=== PATIENT | male | born 1965 | race Caucasian/White ===

== ENCOUNTER 2019-03-25 11:47 | Emergency (ER) | payer OTHER ==
[2019-03-25 11:54] VITALS: BP 121/79; PULSE 79; TEMP 98.2; BMI 33.7
[2019-03-25] MEDS ORDERED: BACITRACIN 0.9 GM PACKET TP ONE (12:22)
[2019-03-25] MEDS ORDERED: DIPHTH,PERTUSS(ACELL),TET 0.5 ML DISP.SYRIN IM ONE ×2 (12:22→12:23)
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
== END 2019-03-25 12:33 | disposition home or self-care (01) ==
LOC: JERFT 11:47
PROC: 3E0234Z Introduction of Serum, Toxoid and Vaccine into Muscle, Percutaneous Approach (ICD-10-PCS; principal; 2019-03-25)
DX: T14.8XXA Other injury of unspecified body region, initial encounter (principal); Y35.891A Legal intervention involving other specified means, law enforcement official injured, initial encounter; Y93.9 Activity, unspecified; Y92.9 Unspecified place or not applicable; Y99.0 Civilian activity done for income or pay
CPT/HCPCS: 90715; 99281-25

== ENCOUNTER 2020-03-19 18:16 | Emergency (ER) | payer SELFPAY ==
[2020-03-19 18:29] VITALS: BP 137/92; PULSE 88; TEMP 98.1; BMI 33.0
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
== END 2020-03-19 18:41 | disposition home or self-care (01) ==
LOC: FER 18:16
PROC: 0HQFXZZ Repair Right Hand Skin, External Approach (ICD-10-PCS; principal; 2020-03-19)
DX: S61.210A Laceration without foreign body of right index finger without damage to nail, initial encounter (principal); W26.8XXA Contact with other sharp object(s), not elsewhere classified, initial encounter
CPT/HCPCS: 99282-25